=== PATIENT | male | born 1945 | race Caucasian/White ===

== ENCOUNTER 2019-04-17 05:37 | Day surgery (SDC) | payer MEDICARE ==
--- NOTE | 2019-04-04 09:34 | HP ---
CC: Dr. Ontiveros* HISTORY AND PHYSICAL: DATE OF PLANNED ADMISSION AND SURGERY: 04/17/19 HISTORY OF PRESENT ILLNESS: Mr. Tobias is a 73-year-old white male who has bladder neck contracture following radical prostatectomy, who is admitted for cystoscopy and transurethral incision of the bladder neck. Mr. Tobias underwent a radical retropubic prostatectomy in [place] in 1999. The pathology was stage II [place] 6 disease. He has done very well, and his PSA has remained very low about 0.1. I first saw him back in 2008 when he moved to [place]. He was worked up for microscopic hematuria and at that time cystoscopy was negative. Over the last several years, he has noted increasing obstructive voiding symptoms with slow stream, hesitancy, and feeling of incomplete bladder emptying. He underwent a cystoscopy about 2 years ago, which showed bladder neck contracture that was gently dilated to 16-Indonesian and again to 22-Indonesian. He initially did fine with improvement in his voiding; however, he came back with recurrence of the contracture and he was dilated with Chaffee dilators to 26-Indonesian. He initially improved; however, the obstructive symptoms recurred. His uroflowmetry showed an intermittent flow with peak flow of 12 mL per second with an average flow of 5 mL/sec for a voided volume of 110 cc. Post void bladder ultrasound showed small residual urine. The patient was advised to be managed conservatively because of concern about any procedure on the bladder neck might interfere with his continence. The patient, however, felt significantly bothered from his urination and the slow stream that he wanted to proceed with incision of the bladder neck. PAST MEDICAL HISTORY AND SYSTEM REVIEW: The patient is relatively healthy. He is on 1 baby aspirin per day. He has hyperlipidemia, on lovastatin 20 mg daily. He is on niacin 500 mg daily and on diphenhydramine 25 mg as needed for sleep. Negative mental health history. ALLERGIES: He denies any allergies to medications. FAMILY HISTORY: Relevant for coronary artery disease in his father. PERSONAL HISTORY: He is a nonsmoker. No alcohol intake. No recreational drugs. PHYSICAL EXAMINATION GENERAL: Pleasant and slim-looking white male, who looks his age. VITAL SIGNS: Blood pressure 130/80, pulse of 70. LUNGS: Clear. HEART: Regular and rhythmic. No murmurs. ABDOMEN: Soft. No masses, no tenderness and no CVA tenderness. EXTERNAL GENITALIA: Normal and he has a normal urethral meatus. IMPRESSION: Bladder neck contracture following radical prostatectomy in 1999 with failure of dilation in the office. PLAN: Plan is for cystoscopy and transurethral incision of the bladder neck. Will limit the incision to the bladder neck only to avoid any injury to the sphincter. The patient, however, understands that this procedure can still be associated with resultant urinary incontinence. All his questions were answered. [id number]/[facility] #: [id number] JOHNIE
[~2019-04-17 05:37] MED LIST: Buffered Lidocaine 1% SYRIN* 1 ML/SYRINGE INTRADERM ONE
[2019-04-17] MEDS ORDERED: Lactated Ringers 1000 ML Bag* 1,000 ML IV SCH (06:00)
[2019-04-17] MEDS ORDERED: Famotidine IV* 10 MG/ML 2 ML (20 mg) IV ONE (06:00)
[2019-04-17] MEDS ORDERED: Buffered Lidocaine 1% SYRIN* 1 ML/SYRINGE INTRADERM ONE (06:03)
[2019-04-17] MEDS ORDERED: cefTRIAXone(*) 2 GM ADDV.VIAL IVPB ONE (06:03)
[2019-04-17] MEDS ORDERED: Famotidine IV* 10 MG/ML 2 ML (20 mg) ONE (06:03)
[2019-04-17] MEDS ORDERED: Propofol* 10 MG/ML 20 ML BTL ONE (07:13)
[2019-04-17] MEDS ORDERED: Lidocaine 2% PF * 5 ML VIAL ONE (07:13)
[2019-04-17] MEDS ORDERED: Midazolam* 1 MG/ML 5 ML VIAL (5 MG) ONE (07:13)
[2019-04-17] MEDS ORDERED: fentaNYL* 50 MCG/ML 2 ML VIAL (100 MCG VIAL) ONE (07:13)
[2019-04-17] MEDS ORDERED: Dexamethasone IV* 4 MG/ML 1 ML (4 MG) ONE (07:13)
[2019-04-17] MEDS ORDERED: Ondansetron INJ* 2 MG/ML VIAL ONE (07:13)
[2019-04-17] MEDS ORDERED: EPHEDrine (Pressors)* 50 MG/ML VIAL ONE (08:02)
[2019-04-17] MEDS ORDERED: Naloxone* 0.4 MG/ML 1 ML VIAL IV PRN (08:37)
[2019-04-17] MEDS ORDERED: fentaNYL* 50 MCG/ML 2 ML VIAL (100 MCG VIAL) IV PRN (08:37)
[2019-04-17] MEDS ORDERED: Ondansetron INJ* 2 MG/ML VIAL IV PRN (08:37)
[2019-04-17 09:45] VITALS: BP 138/76
--- NOTE | 2019-04-17 10:16 | OP ---
CC: Dr. Ontiveros * DATE OF OPERATION: 04/17/19 - [facility] DATE OF : 41 SURGEON: Joshua Landeros MD ANESTHESIOLOGIST: Dr. Pillo Azar. ANESTHESIA: General. PRE-OP DIAGNOSIS: Bladder neck contracture. s/p Radical retropubic prostatectomy. POST-OP DIAGNOSES: 1. Moderate bladder neck contracture. 2. Stricture of membranous urethra. OPERATIVE PROCEDURE: 1. Cystoscopy. 2. Transurethral incision of bladder neck. 3. Urethral dilation. INDICATIONS FOR PROCEDURE: Mr. Tobias is a 73-year-old white male who had a radical prostatectomy for prostate carcinoma 20 years ago. He has done well and his PSA has remained about 0.1. The patient developed increasing obstructive voiding symptoms, which on cystoscopy seemed to be secondary to stricture in the membranous urethra and element of bladder neck contracture. He improved shortly following urethral dilation, but his symptoms recurred. Because of the above history and persistent symptoms, the patient is brought in for the above procedure. OPERATIVE FINDINGS: At cystoscopy, the penile and bulbar urethrae looked normal. There was a partial stricture of the membranous urethra. 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 There was a [id number] bladder neck narrowing. Examination of the bladder showed normal ureteral orifices. There was moderate degree of diffuse trabeculations. No suspicious bladder lesion seen. No calculi or diverticula were noted. DESCRIPTION OF PROCEDURE: After successful general anesthesia, the patient was placed in the lithotomy position and was prepped and draped for a cystoscopy. Cystoscopy was performed and the findings in the membranous urethra and the bladder neck were noted. The bladder was then examined and above findings were noted. The direct optic internal urethrotome was then introduced inside the urethra and the membranous urethra bypassed without incising it. An incision of the bladder neck at 12 o'clock was performed. There was oozing of blood at the site of the incision and this was controlled with the Bugbee electrode. The stricture of the membranous urethra was then dilated using Kian dilators. He was dilated from size 18-Pu[place]ican to 28-Pu[place] Rican. No incision was carried in the area of the urethral stricture to avoid any urinary incontinence. A 20-[place] Coates catheter was then placed and the balloon inflated with 10 cc of water. The patient tolerated the procedure well and left the operating room in good condition. There was no blood loss and no specimens. The plan is to discharge the patient home with a Coates catheter, which will be removed in 48 hours. [id number]/[facility] #: [id number] JOHNIE
== END 2019-04-17 10:00 | disposition home or self-care (01) ==
LOC: OR 05:37
PROVIDERS: ATTEND Urology
DX: N32.0 Bladder-neck obstruction (principal); N35.913 Unspecified membranous urethral stricture, male; Z85.46 Personal history of malignant neoplasm of prostate; E78.5 Hyperlipidemia, unspecified
CPT/HCPCS: J0696; J1100; J2250; J2405; J2704; J3010

== ENCOUNTER 2021-05-14 10:53 | Inpatient (IN) ==
[2021-05-14] MEDS ORDERED: Lactated Ringers 1000 ml BAG 1,000 ML IV ONE (11:22)
[2021-05-14 11:50] LABS: Urine Appearance Clear; Urine Bilirubin Negative (Negative); Urine Blood Negative (Negative); Urine Color Yellow; Urine Glucose Negative (Negative); Urine Ketones Negative (Negative); Urine Nitrite Negative (Negative); Urine Protein Negative (Negative); Urine Specific Gravity 1.019 (1.002-1.030); Urine Urobilinogen Negative (Negative)
[2021-05-14 11:56] LABS: ABS Eosinophils 0.1 10^3/ul (0-0.6); ABS Lymphocytes 1.4 10^3/ul (1.0-4.8); ABS Monocytes 0.6 10^3/ul (0-0.8); ABS Neutrophils 7.6 10^3/ul (1.5-7.7); Eosinophil % 0.7 %; Hematocrit 41 % (42-52); Lymphocyte % 14.2 %; Mean Corpuscular HGB Conc 35 g/dL (31-36); Mean Corpuscular Hemoglobin 32 pg (27-31); Mean Corpuscular Volume 92 fL (80-94); Platelet Count 188 10^3/uL (150-450); Red Blood Count 4.43 10^6 /uL (4.18-5.48); Red Cell Distribution Width 13 % (10-15); White Blood Count 9.7 10^3/uL (3.5-10.8)
[2021-05-14 12:14] LABS: ALT 24 U/L (7-52); AST 33 U/L (13-39); Albumin 4.1 g/dL (3.2-5.2); Albumin/Globulin Ratio 1.9 (1-3); Alkaline Phosphatase 67 U/L (35-149); Anion Gap 7 mmol/L (2-11); Blood Urea Nitrogen 18 mg/dL (6-24); CO2 Carbon Dioxide 27 mmol/L (22-32); Calcium 9.7 mg/dL (8.6-10.3); Chloride 103 mmol/L (101-111); Globulin 2.2 g/dL (2-4); Glucose 103 mg/dL (70-100); Sodium 137 mmol/L (135-145); Total Protein 6.3 g/dL (6.4-8.9); eGFR CKD-EPI 94.1 (>60)
[2021-05-14 12:35] LABS: Troponin I 2.12 ng/mL (<0.03)
[2021-05-14 12:50] LABS: T4, Total 8.87 mcg/dL (6.09-12.23)
[2021-05-14 12:53] LABS: TSH Ultra Thyroid Stim Horm 1.71 mcIU/mL (0.34-5.60)
[2021-05-14 13:51] LABS: C Reactive Protein < 1.00 mg/L (<8.01); Creatine Kinase 168 U/L (10-223)
[2021-05-14 13:55] LABS: Myoglobin 77.2 ng/mL (17.4-105.7)
[2021-05-14] MEDS ORDERED: Iohexol 350 (CONTRAST) 500 ML MDV IV ONE (14:41)
[2021-05-14] MEDS: Heparin 5000 UNITS/ML 1 mL VIAL IV SCH (18:26)
[2021-05-14] MEDS: Heparin DRIP 25,000 UNITS BAG 25,000 UNITS/500 ML BAG IV SCH (18:27)
[2021-05-14 18:29] LABS: ABS Eosinophils 0.1 10^3/ul (0-0.6); ABS Lymphocytes 1.5 10^3/ul (1.0-4.8); ABS Monocytes 0.6 10^3/ul (0-0.8); ABS Neutrophils 5.6 10^3/ul (1.5-7.7); Eosinophil % 0.9 %; Hematocrit 45 % (42-52); Hemoglobin 15.3 g/dL (14.0-18.0); Lymphocyte % 19.4 %; Mean Corpuscular HGB Conc 34 g/dL (31-36); Mean Corpuscular Hemoglobin 31 pg (27-31); Mean Corpuscular Volume 92 fL (80-94); Mean Platelet Volume 7.8 fL (7.4-10.4); Platelet Count 197 10^3/uL (150-450); Red Blood Count 4.87 10^6 /uL (4.18-5.48); Red Cell Distribution Width 14 % (10-15); White Blood Count 7.8 10^3/uL (3.5-10.8)
[2021-05-14 18:39] LABS: Blood Urea Nitrogen 16 mg/dL (6-24); eGFR CKD-EPI 91.1 (>60)
[2021-05-14 18:45] LABS: Troponin I 2.67 ng/mL (<0.03)
[2021-05-14 21:54] LABS: Troponin I 2.24 ng/mL (<0.03)
[2021-05-15 00:31] LABS: Troponin I 2.76 ng/mL (<0.03)
[2021-05-15 03:46] LABS: Troponin I 3.37 ng/mL (<0.03)
[2021-05-15 06:46] LABS: ABS Basophils 0.1 10^3/ul (0-0.2); ABS Eosinophils 0.1 10^3/ul (0-0.6); ABS Lymphocytes 1.4 10^3/ul (1.0-4.8); ABS Monocytes 0.6 10^3/ul (0-0.8); ABS Neutrophils 5.4 10^3/ul (1.5-7.7); Eosinophil % 1.7 %; Hematocrit 40 % (42-52); Hemoglobin 14.1 g/dL (14.0-18.0); Lymphocyte % 18.6 %; Mean Corpuscular HGB Conc 35 g/dL (31-36); Mean Corpuscular Hemoglobin 32 pg (27-31); Mean Corpuscular Volume 92 fL (80-94); Mean Platelet Volume 8.6 fL (7.4-10.4); Platelet Count 188 10^3/uL (150-450); Red Cell Distribution Width 13 % (10-15); White Blood Count 7.6 10^3/uL (3.5-10.8)
[2021-05-15 06:57] LABS: Troponin I 3.48 ng/mL (<0.03)
[2021-05-15] MEDS: Aspirin EC 81 mg TAB.EC (enteric coated) PO SCH (10:30)
[2021-05-15 15:42] LABS: Cholesterol 112 mg/dL; HDL Cholesterol 42.8 mg/dL; LDL Cholesterol 53 mg/dL; Triglycerides 82 mg/dL
[2021-05-15 21:33] LABS: Troponin I 2.06 ng/mL (<0.03)
[2021-05-16] MEDS: Heparin DRIP 25,000 UNITS BAG 25,000 UNITS/500 ML BAG IV SCH (04:20)
[2021-05-16 06:26] LABS: ABS Basophils 0.1 10^3/ul (0-0.2); ABS Eosinophils 0.1 10^3/ul (0-0.6); ABS Lymphocytes 1.7 10^3/ul (1.0-4.8); ABS Monocytes 0.5 10^3/ul (0-0.8); ABS Neutrophils 3.2 10^3/ul (1.5-7.7); Eosinophil % 2.5 %; Hematocrit 38 % (42-52); Hemoglobin 13.6 g/dL (14.0-18.0); Lymphocyte % 30.3 %; Mean Corpuscular HGB Conc 35 g/dL (31-36); Mean Corpuscular Hemoglobin 32 pg (27-31); Mean Corpuscular Volume 91 fL (80-94); Mean Platelet Volume 8.2 fL (7.4-10.4); Platelet Count 166 10^3/uL (150-450); Red Blood Count 4.21 10^6 /uL (4.18-5.48); Red Cell Distribution Width 14 % (10-15); White Blood Count 5.7 10^3/uL (3.5-10.8)
[2021-05-16 06:41] LABS: Blood Urea Nitrogen 20 mg/dL (6-24); eGFR CKD-EPI 91.8 (>60)
[2021-05-16] MEDS: Aspirin EC 81 mg TAB.EC (enteric coated) PO SCH (08:29)
[2021-05-16] MEDS ORDERED: NS 0.9% 1000 ml BAG 1,000 ML IV SCH (23:59)
[2021-05-17 06:32] LABS: ABS Eosinophils 0.2 10^3/ul (0-0.6); ABS Lymphocytes 1.4 10^3/ul (1.0-4.8); ABS Monocytes 0.4 10^3/ul (0-0.8); ABS Neutrophils 4.3 10^3/ul (1.5-7.7); Eosinophil % 2.6 %; Hematocrit 42 % (42-52); Hemoglobin 14.5 g/dL (14.0-18.0); Lymphocyte % 21.8 %; Mean Corpuscular HGB Conc 35 g/dL (31-36); Mean Corpuscular Hemoglobin 32 pg (27-31); Mean Corpuscular Volume 92 fL (80-94); Mean Platelet Volume 7.6 fL (7.4-10.4); Nucleated Red Blood Cells % 0.1; Platelet Count 192 10^3/uL (150-450); Red Blood Count 4.55 10^6 /uL (4.18-5.48); Red Cell Distribution Width 14 % (10-15); White Blood Count 6.3 10^3/uL (3.5-10.8)
[2021-05-17] MEDS: Aspirin EC 81 mg TAB.EC (enteric coated) PO SCH (07:41)
[2021-05-17] MEDS ORDERED: Midazolam 5 mg/5 ml VIAL 1 mg/ml 5 ml VIAL (5 mg) ONE (08:36)
[2021-05-17] MEDS ORDERED: nitroGLYCERIN DRIP 25,000 MCG/250 ML BTL ONE (08:36)
[2021-05-17] MEDS ORDERED: Heparin 2 UNITS/ML 1000 mls 2,000 ML IV ONE (08:36)
[2021-05-17] MEDS ORDERED: Iohexol 350 (CONTRAST) 200 ML MDV IV ONE ×2 (08:36→09:30)
[2021-05-17] MEDS ORDERED: VERAPAMIL 2.5 MG/ML 2 ML VIAL ** 5 mg/2 ml ONE (08:36)
[2021-05-17] MEDS ORDERED: Lidocaine 1% VIAL 10 MG/ML VIAL ONE (08:36)
[2021-05-17] MEDS ORDERED: Heparin 1,000 UNIT/ML 10 ml (10,000 UNITS) CATHLAB/DIALYSIS ONE (08:36)
[2021-05-17] MEDS ORDERED: fentaNYL 100 mcg/2 ml 50 MCG/ML VIAL ONE (08:36)
[2021-05-17] MEDS: Heparin DRIP 25,000 UNITS BAG 25,000 UNITS/500 ML BAG IV SCH (14:55)
[2021-05-17 18:06] LABS: Rapid COVID-19 Molecular Undetected (Undetected)
[2021-05-17] MEDS: Heparin 5000 UNITS/ML 1 mL VIAL IV SCH (21:45)
[2021-05-18 03:54] LABS: ABS Eosinophils 0.2 10^3/ul (0-0.6); ABS Lymphocytes 1.8 10^3/ul (1.0-4.8); ABS Monocytes 0.6 10^3/ul (0-0.8); ABS Neutrophils 5.3 10^3/ul (1.5-7.7); Eosinophil % 2.4 %; Hematocrit 39 % (42-52); Hemoglobin 13.5 g/dL (14.0-18.0); Lymphocyte % 22.4 %; Mean Corpuscular HGB Conc 35 g/dL (31-36); Mean Corpuscular Hemoglobin 32 pg (27-31); Mean Corpuscular Volume 92 fL (80-94); Mean Platelet Volume 8.1 fL (7.4-10.4); Platelet Count 205 10^3/uL (150-450); Red Blood Count 4.25 10^6 /uL (4.18-5.48); Red Cell Distribution Width 14 % (10-15); White Blood Count 7.9 10^3/uL (3.5-10.8)
[2021-05-18 04:10] LABS: eGFR CKD-EPI 91.1 (>60)
[2021-05-18 04:14] VITALS: BP 98/59
== END 2021-05-18 08:15 | disposition short-term general hospital (02) | DRG 282 ==
LOC: EDHOLD 10:53 → ED 10:53 → MEDTELE 20:24 → SUATTDRO 05-16 16:00
PROVIDERS: ADMIT Internal Medicine; ATTEND Hospitalist